=== PATIENT | female | born 1985 | race African-American/Black ===

== ENCOUNTER 2022-06-01 20:19 | Emergency (ER) | payer BC ==
[~2022-06-01] VITALS: Ht 167.6 cm; Wt 115.0 kg
[2022-06-01 20:22] VITALS: BP 137/88
[2022-06-01] MEDS ORDERED: AMOX-494 MT (20:52)
[2022-06-01] MEDS ORDERED: NEOM10DR11 LEFT EAR (20:52)
== END 2022-06-01 21:03 | disposition home or self-care (01) ==
LOC: ER 20:49
DX: H60.502 Unspecified acute noninfective otitis externa, left ear (principal); H66.92 Otitis media, unspecified, left ear; Z98.890 Other specified postprocedural states
CPT/HCPCS: 99283